=== PATIENT | male | born 1955 | race Caucasian/White ===

== ENCOUNTER → 2017-01-15 | Outpatient (CLI) | payer OTHER ==
[~2017-01-15] MED LIST: ASCA500 PO; B-COTAB18 PO; CRAN1CAP15 PO; FEXO1TAB49 PO; GLUCTAB7 PO; IBUP-103 PO; MULT1CAP17 PO
--- NOTE | 2017-01-15 14:52 | DIAGNOSTIC IMAGING REPORT ---
R FOOT MIN 3 VIEWS ROUTINE CLINICAL HISTORY: M79.676 Toe pain right 2nd toe pain- gout? Inflammatory arthritis COMPARISON: None. DISCUSSION: The bony mineralization appears normal. No acute fractures are visualized. There is no evidence of erosive disease. Incidental note is made of talar beak. There are degenerative changes most pronounced the level the first metatarsal phalangeal joint. IMPRESSION: 1. No acute fractures 2. No evidence of erosive disease 3. Degenerative changes most pronounced the level the first metatarsal phalangeal joint Electronically signed by: Matthew Whitman M.D. 01/15/2017 2:50 PM Dictated Date/Time: 01/15/2017 2:48 PM
== END | disposition home or self-care (01) ==
LOC: C.RADBC 14:10
PROVIDERS: ATTEND Physician Assistant Medical
DX: R97.20 Elevated prostate specific antigen [PSA] (principal); M79.674 Pain in right toe(s)

== ENCOUNTER → 2017-02-26 | Outpatient (CLI) | payer OTHER ==
[2017-02-26 11:28] LABS: PROSTATE SPECIFIC ANTIGEN 6.37 ng/ml (0.000-4.000); URIC ACID 7.5 mg/dl (2.6-7.2)
== END | disposition home or self-care (01) ==
LOC: C.LABBC 07:42
PROVIDERS: ATTEND Physician Assistant Medical
DX: R97.20 Elevated prostate specific antigen [PSA] (principal); M79.676 Pain in unspecified toe(s)

== ENCOUNTER 2020-07-27 06:43 | Observation (INO) ==
--- NOTE | 2020-07-13 09:36 | PAT Medication Instructions ---
Medication Instructions Date of Service July 13, 2020 Home Medications Medication Instructions Recorded fluticasone furoate 100 1 inh INH DAILY PRN #60 ea 11/19/19 mcg-vilanterol 25 mcg/dose inhalation powder gabapentin 100 mg capsule 100 mg PO .COMPLEX #30 cap 03/13/20 colchicine 0.6 mg capsule 0.6 mg PO BID PRN #20 cap 04/27/20 allopurinol 100 mg tablet 100 mg PO BID #180 tab 05/15/20 ascorbic acid (vitamin C) [Vitamin C] 1,000 mg PO BID multivitamin with minerals [Multiple Vitamin-Minerals] 1 tab PO QAM vitamin B complex 1 tab PO QAM albuterol sulfate 90 mcg/actuation aerosol inhaler 1 puff INHALATION QID PRN cranberry 400 mg capsule 400 mg PO QAM ibuprofen 200 mg tablet 200 mg PO TID PRN fluticasone furoate 100 mcg-vilanterol 25 mcg/dose inhalation powder 1 inh INH DAILY PRN gabapentin 100 mg capsule 100 mg PO .COMPLEX colchicine 0.6 mg capsule 0.6 mg PO BID PRN allopurinol 100 mg tablet 100 mg PO BID ASK your prescriber and surgeon ibuprofen 200 mg tablet 200 mg PO TID PRN STOP taking 2 weeks before surgery (or as soon as possible if surgery is within 2 weeks) cranberry 400 mg capsule 400 mg PO QAM DO NOT take the morning of surgery ascorbic acid (vitamin C) [Vitamin C] 1,000 mg PO BID multivitamin with minerals [Multiple Vitamin-Minerals] 1 tab PO QAM vitamin B complex 1 tab PO QAM colchicine 0.6 mg capsule 0.6 mg PO BID PRN Take morning of surgery With a small sip of water, OTHERWISE NOTHING TO EAT OR DRINK AFTER MIDNIGHT: albuterol sulfate 90 mcg/actuation aerosol inhaler 1 puff INHALATION QID PRN (use if needed; please bring rescue inhaler with you to hospital day of surgery if possible) fluticasone furoate 100 mcg-vilanterol 25 mcg/dose inhalation powder 1 inh INH DAILY PRN (if needed) allopurinol 100 mg tablet 100 mg PO BID Take evening before surgery ascorbic acid (vitamin C) [Vitamin C] 1,000 mg PO BID albuterol sulfate 90 mcg/actuation aerosol inhaler 1 puff INHALATION QID PRN (if needed) fluticasone furoate 100 mcg-vilanterol 25 mcg/dose inhalation powder 1 inh INH DAILY PRN (if needed) gabapentin 100 mg capsule 100 mg PO .COMPLEX colchicine 0.6 mg capsule 0.6 mg PO BID PRN (if needed) allopurinol 100 mg tablet 100 mg PO BID Other Notes If you have any questions please call us at [phone] or [phone] or [phone] or [phone]
--- NOTE | 2020-07-17 13:46 | Anesthesiology Consultation ---
Date of Service July 17, 2020 Assessment & Plan (1) Encounter for pre-operative examination: - COVID screening: Per assessment on 07/17: Travel screen negative, no known COVID-19 positive contacts or current COVID-19 related symptoms. Patient fully v accinated. Surgeon arranging preop COVID testing. Awaiting results. - S/P Left Achilles tendon rupture repair (11/16/19): Grade view 3, MAC#3, ETT 7.5 + PNB at [facility] Chart Review Chart Review: Acceptable Risk for Surgery and Patient seen in Pre Admission Testing Teaching & Discussion Pre-Anesthesia Teaching/Discussion Notes: Instructed NPO after midnight before surgery,except medications with 15 cc of water. Medication instructions provided according to the PAT guidelines. History Surgery Operation Date: 07/27/20 09:20 Proposed Procedures p Right Total Knee Arthroplasty - Parmjit Fishman MD Height/Weight Height: 5 ft 8 in Weight: 81.4 kg Allergies Allergy/AdvReac Type Severity Reaction Status Date / Time Penicillins Allergy Intermediate Hives, Verified 07/14/20 16:20 swelling Medications Home Medications Medication Instructions Recorded Confirmed Last Taken ascorbic acid (vitamin C) [Vitamin 1,000 mg PO BID 03/02/18 07/05/20 11/15/19 C] multivitamin with minerals 1 tab PO QAM 03/02/18 07/05/20 11/15/19 [Multiple Vitamin-Minerals] vitamin B complex 1 tab PO QAM 03/02/18 07/05/20 11/15/19 albuterol sulfate 90 mcg/actuation 1 puff INHALATION QID PRN 09/08/18 07/05/20 Unknown aerosol inhaler cranberry 400 mg capsule 400 mg PO QAM 09/08/18 07/05/20 11/15/19 ibuprofen 200 mg tablet 200 mg PO TID PRN tab 03/11/19 07/05/20 11/15/19 08:00 fluticasone furoate 100 1 inh INH DAILY PRN #60 ea 11/19/19 07/05/20 Unknown mcg-vilanterol 25 mcg/dose inhalation powder gabapentin 100 mg capsule 100 mg PO .COMPLEX #30 cap 03/13/20 07/05/20 Unknown colchicine 0.6 mg capsule 0.6 mg PO BID PRN #20 cap 01/21/21 03/31/21 Unknown allopurinol 100 mg tablet 100 mg PO BID #180 tab 05/15/20 07/05/20 Unknown Past Medical History Medical History Elevated PSA Under surveillance Exercise-induced asthma Hx of gout Osteoarthritis Right knee DJD Spinal stenosis Exercise / Class Metabolic Activity II 4-5 Yardwork/Stairs/Walk up hill Past Family History Family History Mother Alzheimer disease Brother Osteoporosis Father Osteoporosis Other No family history of adverse response to anesthesia Denies family history of Ovarian cancer Prostate cancer Breast cancer Lung cancer Colorectal cancer Past Surgical History Surgical History H/O Achilles tendon repair Left achilles tendon rupture repair (11/16/19): Grade view 3, MAC#3, ETT 7.5 at [facility] H/O arthroscopic knee surgery Right H/O nasal septoplasty H/O prostate biopsy x2 H/O total hip arthroplasty Left History of carpal tunnel release Right History of colonoscopy History of lumbar laminectomy History of tonsillectomy and adenoidectomy S/P ORIF (open reduction internal fixation) fracture Right hip Past Anesthesia History No Hx of Anesthesia Complications and No Family Hx of Anesthesia Complications History of PONV No Hx of PONV and No Hx of Motion Sickness Social History Smoking Status: Never smoker Do You Dip or Chew Tobacco: No Hx Alcohol Use: Yes Alcohol type: beer alcohol intake frequency: a few times a month Hx Substance Use: No substance use type: does not use Review of Systems No snoring. Patient denies chest pain, shortness of breath, dyspnea on exertion, fever, chills, cough, wheezing, palpitations. Physical Exam Vital Signs VITALS BP 121/74 P 77 TEMP 98.3 SP02 98%RA RESP 16 PHYSICAL Full cervical extension range of motion. Full TMJ range of motion. TMD 3.5 finger breaths Mallampati Score 2 Dentition: intact, possible crown Lungs: clear throughout to auscultation Cardiac: regular rate and rhythm, no murmurs noted Spine: normal Carotid arteries: negative bruit Extremities: no edema Testing Laboratory Results 07/17/20 14:16 07/17/20 14:16 PT 9.9 Seconds (9.0-12.0) 07/17/20 14:16 INR 1.0 (0.9-1.1) 07/17/20 14:16 APTT 27.3 Seconds (21.0-31.0) 07/17/20 14:16 Blood Type O Positive 07/17/20 14:16 Antibody Screen NEGATIVE 07/17/20 14:16 Electrocardiogram Date: 11/16/19 Findings: + NSR @ (76) Chest X-Ray Date: 07/17/20 FINDINGS: Cardiac mediastinal and hilar silhouettes are within normal limits. There is no pneumothorax, pleural effusion, airspace consolidation or overt pulmonary edema. Degenerative changes of the shoulders and spine. IMPRESSION: No acute process.
--- NOTE | 2020-07-17 14:44 | XRay Report ---
XR chest Pre-admission PA/Lat HISTORY: 64 years-old Male pat degenerative joint disease COMPARISON: Chest radiographs 03/02/2018 TECHNIQUE: PA and lateral views of the chest FINDINGS: Cardiac mediastinal and hilar silhouettes are within normal limits. There is no pneumothorax, pleural effusion, airspace consolidation or overt pulmonary edema. Degenerative changes of the shoulders and spine. IMPRESSION: No acute process. ACT 112: Negative or not required by law. The above report was generated using voice recognition software. It may contain grammatical, syntax o r spelling errors. Electronically signed by: Hremelindo Luke M.D. 07/17/2020 2:43 PM
[2020-07-17 15:24] LABS: Basophils # (auto) 0.04 K/uL (0-0.2); Basophils % (auto) 0.6 %; Eosinophils # (auto) 0.19 K/uL (0-0.5); Eosinophils % (auto) 2.8 %; Hematocrit (blood only) 41.4 % (42-52); Hemoglobin 14.3 g/dL (14.0-18.0); Immature Granulocytes # (auto) 0.01 K/uL (0.00-0.02); Immature Granulocytes % (auto) 0.1 %; Lymphocytes # (auto) 1.87 K/uL (1.2-3.4); Lymphocytes % (auto) 27.6 %; Mean Corpuscular Hemoglobin 31.6 pg (25-34); Mean Corpuscular Hgb Conc 34.5 g/dL (32-36); Mean Corpuscular Volume 91.4 fL (80-100); Mean Platelet Volume 9.7 fL (7.4-10.4); Monocytes # (auto) 0.71 K/uL (0.11-0.59); Monocytes % (auto) 10.5 %; Neutrophils # (auto) 3.95 K/uL (1.4-6.5); Neutrophils % (auto) 58.4 %; Platelet Count 354 K/uL (130-400); RDW Standard Deviation 43.5 fL (36.4-46.3); Red Blood Count 4.53 M/uL (4.7-6.1); White Blood Count 6.77 K/uL (4.8-10.8)
[2020-07-17 15:31] LABS: BUN Creatinine Ratio 17.7 (10-20); Blood Urea Nitrogen 16 mg/dl (7-18); C Reactive Protein < 0.29 mg/dl (0-0.29); Calcium 8.9 mg/dl (8.5-10.1); Carbon Dioxide 29 mmol/L (21-32); Chloride 105 mmol/L (98-107); Est GFR (African American) 104.5; Est GFR (Non-African American) 90.1; Glucose 94 mg/dl (70-99); Potassium 4.2 mmol/L (3.5-5.1); Sodium 138 mmol/L (136-145)
[2020-07-17 15:43] LABS: Partial Thromboplastin Time 27.3 Seconds (21.0-31.0); Prothrombin Time 9.9 Seconds (9.0-12.0)
--- NOTE | 2020-07-21 14:45 | History and Physical Report ---
DATE OF ADMISSION: 07/27/2020 CHIEF COMPLAINT: Persistent right knee pain, discomfort and swelling. HISTORY OF PRESENT ILLNESS: The patient is a 64-year-old gentleman well known to me from previous left hip replacement done about 4 years ago and a right DHS done 10 years ago. He has got a long history of right knee problems. He had his right knee scoped by ____ in the . He has had on and off pain in his knee ever since. He has been through extensive conservative treatments including injections and medicines which have become less successful over time. He has global pain. The more he is up on it, the more it swells and more sore it gets. He is having more difficult time exercising and maintaining an active lifestyle. He would like to have his right knee fixed. PAST MEDICAL HISTORY: 1. Osteoarthritis. 2. Lumbar spondylosis. PAST SURGICAL HISTORY: Include: 1. Left Achilles repair done in 11/2019. 2. Right hip DHS done by myself 10 years ago. 3. Left hip replacement done 4 years ago. ALLERGIES: PENICILLIN, WHICH CAUSES HIVES. CURRENT MEDICINES: Include: 1. Advil. 2. Allopurinol. 3. Vitamin C. 4. Vitamin B. 5. Multivitamin. SOCIAL HISTORY: A 64-year-old male. Very active. Drinks 7 drinks per week. Does not smoke. FAMILY HISTORY: Noncontributory. REVIEW OF SYSTEMS: Negative for diabetes, neurologic problem, vascular problems or bleeding disorders. No history of DVT or PE. No known bleeding problems. PHYSICAL EXAMINATION GENERAL: Healthy, pleasant, middle-aged male. He looks to be in excellent health. HEENT: Benign. NECK: Supple, no lymphadenopathy. LUNGS: Clear to auscultation. HEART: Has a regular rate and rhythm. ABDOMEN: Soft, nontender, nondistended. EXTREMITIES: Grossly neurovascularly intact except as follows. Examination of the right knee reveals the patient ambulates with a bit of a limp. He has got varus alignment to his knee with a varus thrust with weightbearing. He has got a flexion contracture of about 15 degrees and can bend to about 105. Fairly stiff in flexion. No instability. No pain with hip motion. X-RAYS: X-rays of the right knee reviewed. It shows advanced right knee DJD. He has got complete loss of medial and lateral joint spaces with some tibial femoral subluxation. He has got chondrocalcinosis. He has got osteophytes in all 3 compartments. The tibia subluxated anteriorly suggestive of chronic ACL deficiency. ASSESSMENT: A 64-year-old male with a history of multiple orthopedic problems and treatments in the past with advanced right knee degenerative joint disease. He has failed extensive conservative measures and would like to have his right knee replaced. 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 PLAN: We will plan on taking him to the operating room and do a right total knee replacement. The risks and benefits of this procedure were explained to the patient including but not limited to DVT, PE, , infection, neurological injury, vascular injury, bleeding problem, pain, limited range of motion, stiffness, failure to relieve symptoms, incomplete relief of symptoms, need for further surgery in future, fracture, leg length inequality, nerve palsy, and need for revision surgery. The patient understands and desires to proceed. Informed consent was obtained.
[~2020-07-27 06:43] MED LIST changes: +ACETAMINOPHEN 500 MG TAB PO SCH; -ASCA500 PO; -B-COTAB18 PO; +BUPIVACAINE 0.5 % 5 MG/1 ML PF 10ML VIAL ONE; +BUPIVACAINE LIPOSOME/PF 266 MG, BUPIVACAINE/EPINEPHRINE 50 ML, SODIUM CHLORIDE 0.9% 30 ... INFIL SCH; -CRAN1CAP15 PO; +FAMOTIDINE 20 MG TAB PO SCH; -FEXO1TAB49 PO; +GABAPENTIN 300 MG CAP PO SCH; -GLUCTAB7 PO; -IBUP-103 PO; +LR 500ML BOLUS, THEN 15ML/HR IV SCH; +LR 60ML/HR IV SCH; +METOCLOPRAMIDE HCL 10 MG TABLET PO SCH; -MULT1CAP17 PO; +Scopolamine 1 MG TDSY TD SCH; +TRANEXAMIC ACID 1,000 MG **IV Intra-op IV SCH; +VANCOMYCIN HCL 1,250 MG in SODIUM CHLORIDE 0.9% 250 ML IV SCH; +VANCOMYCIN HCL 2,500 MG in SODIUM CHLORIDE 0.9% 500 ML IV SCH; +ceFAZolin 2000MG 2,000 MG/15 ML SYR IV SCH
--- NOTE | 2020-07-27 06:51 | History & Physical Bridge Note ---
Date of Service July 27, 2020 History & Physical Bridge Note I have examined the patient, reviewed the History & Physical and in the interval since the performance of the History & Physical I have noted the following changes of clinical significance: no changes noted
[2020-07-27] MEDS ORDERED: MIDAZOLAM HCL 1 MG/ML 2ML VIAL ONE (07:45)
[2020-07-27] MEDS ORDERED: PROPOFOL IV EMULSION 10 MG/ML 20 ML VIAL IV ONE ×2 (07:45→09:53)
[2020-07-27] MEDS ORDERED: KETOROLAC 30 MG/ML VIAL ONE (07:45)
[2020-07-27] MEDS ORDERED: KETAMINE 50 MG/5 ML SYRINGE ONE (07:45)
[2020-07-27] MEDS ORDERED: LIDOCAINE HCL 2% 2 ML VIAL/AMP(20MG/ML) INFIL ONE (07:45)
[2020-07-27] MEDS ORDERED: GLYCOPYRROLATE 0.2 MG/ML VIAL ONE (07:45)
[2020-07-27] MEDS ORDERED: ONDANSETRON INJ 2 MG/ML 2 ML VIAL ONE (07:45)
[2020-07-27] MEDS ORDERED: BUPIVACAINE LIPOSOME 1.3% 266 MG/20 ML VIAL ONE (07:52)
[2020-07-27] MEDS ORDERED: SODIUM CHLORIDE 0.9% PF 50 ML VIAL ONE (07:52)
[2020-07-27] MEDS ORDERED: ONDANSETRON INJ 2 MG/ML 2 ML VIAL IV PRN ×2 (07:53→12:13)
[2020-07-27] MEDS ORDERED: fentaNYL citrate 100 MCG/2 ML VIAL IV PRN (07:53)
[2020-07-27] MEDS ORDERED: ATROPINE SULFATE 0.1 MG/ML 10ML SYR IV PRN (07:53)
[2020-07-27] MEDS ORDERED: BUPIVACAINE 0.25% 30 ML VIAL ONE (07:53)
[2020-07-27] MEDS ORDERED: EPINEPHrine INJ 1 MG/ML AMP ONE (07:53)
[2020-07-27] MEDS ORDERED: ePHEDrine sulfate 50 MG/ML AMP IV PRN (07:53)
[2020-07-27] MEDS ORDERED: BACITRACIN INJ 50,000 UNIT VIAL ONE (07:53)
--- NOTE | 2020-07-27 10:32 | Post Operative Brief Note ---
PG Immediate Post Op with CF Date of Surgery July 27, 2020 Pre & Post Diagnosis Operation Date: 07/27/20 08:50 Pre-Op Diagnosis: Right Knee Degenerative Joint Disease, Knee Pain Post-Op Diagnosis: Right Knee Degenerative Joint Disease, Knee Pain I identified the patient and participated in the time-out.: Yes Procedure Operation Date: 07/27/20 08:50 Actual Procedures p Right Total Knee Arthroplasty, Cemented(Right) - Parmjit Fishman MD Surgeon Parmjit Fishman MD Upper Doubler DUSTIN Reilly Estimated Blood Loss 50 Findings Consistent with Post-Op Diagnosis Fluids 1300 cc Specimens Specimen Description: Permanent Specimen A: Right knee bone and tissue Drains Traore Catheter Anesthesia Type Spinal MAC Complications none Disposition Accompanied Patient To Recovery: No Disposition: Recovery Room
--- NOTE | 2020-07-27 10:52 | XRay Report ---
XR knee RT 1 or 2V routine CLINICAL HISTORY: Postoperative evaluation. COMPARISON: Right knee radiographs May 03, 2020. FINDINGS: Alignment of the total right knee arthroplasty is anatomic. There is no periprosthetic fra cture. There are skin jeffery. No unexpected radiopaque foreign bodies are present. IMPRESSION: Expected findings following total right knee arthroplasty. ACT 112: Negative or not required by law. Electronically signed by: Moses Hill M.D. 07/27/2020 10:51 AM
--- NOTE | 2020-07-27 11:12 | Anesthesiology Progress Note ---
Date of Service July 27, 2020 Anesthesia Post Procedure Vital Signs Vital Signs: Temp Pulse Pulse Resp BP Pulse Ox 07/27/20 11:00 97.7 F 78 19 119/77 100 07/27/20 10:50 71 15 124/69 100 07/27/20 10:40 69 15 117/70 99 07/27/20 10:30 75 16 111/71 100 07/27/20 10:21 98.1 F 82 16 116/67 100 07/27/20 07:09 97.9 F 69 18 132/80 99 Transfer of Care Handoff Completed per policy Notes Mental Status: alert / awake / arousable and participated in evaluation Patient Amnestic to Procedure: Yes Nausea / Vomiting: adequately controlled Pain: adequately controlled Airway Patency, RR, SpO2: stable & adequate BP & HR: stable & adequate Hydration State: stable & adequate Neuraxial Anesthesia: was administered and sensory block is resolving Anesthetic Complications: no major complications apparent and Pt Satisfied with anesthetic care
[2020-07-27] MEDS ORDERED: TAMSULOSIN HCL 0.4 MG CAP PO PRN (12:13)
[2020-07-27] MEDS ORDERED: bisacodyL 10 MG SUPP PR PRN (12:13)
[2020-07-27] MEDS ORDERED: NALOXONE HCL 0.4 MG/1 ML VIAL/CARP IV PRN (12:13)
[2020-07-27] MEDS ORDERED: HYDROmorphone INJ 0.5 MG/0.5 ML SYR IV PRN (12:13)
[2020-07-27] MEDS ORDERED: ALUMINUM/MAGNESIUM SUSP 30 ML UDC PO PRN (12:13)
[2020-07-27] MEDS ORDERED: COLCHICINE 0.6 MG TAB PO PRN (12:13)
[2020-07-27] MEDS ORDERED: ALBUTEROL HFA 8 GM INHALER INH PRN (12:13)
[2020-07-27] MEDS ORDERED: MAGNESIUM HYDROXIDE SUSP 30 ML UDC PO PRN (12:13)
[2020-07-27] MEDS ORDERED: FLUTICASONE/VILANTEROL 100/25MCG 14 PUFFS/INHALER INH PRN (12:13)
[2020-07-27] MEDS ORDERED: METOCLOPRAMIDE HCL INJ 5 MG/ML 2 ML VIAL IV PRN (12:13)
[2020-07-27] MEDS: oxyCODONE HCL IR 5 MG TAB (IMMEDIATE RELEASE) PO PRN ×2 (13:42→22:53)
[2020-07-27] MEDS: SODIUM CHLORIDE 0.9% 1000ML 1,000 ML IV SCH ×2 (13:43→23:23)
--- NOTE | 2020-07-27 15:11 | Progress Notes ---
DATE: 07/27/2020 SUBJECTIVE: A 64-year-old gentleman postop from a right knee replacement. He is doing well. He says it just feels sore. No chest pain or shortness of breath. Not feeling dizzy or lightheaded. OBJECTIVE: VITAL SIGNS: Temperature 36.4. Vital signs are stable. GENERAL: Shows a pleasant, middle-aged male. He is sitting up in bed and was using his phone when I went in the room, looks completely comfortable. LUNGS: Clear to auscultation. HEART: Has a regular rate and rhythm. ABDOMEN: Soft, nontender, nondistended. EXTREMITIES: Grossly neurovascularly intact except as follows: Examination of the right leg reveals the dressing to be clean, dry and intact. Leg is well aligned. He has got brisk refill with pink toes. He can dorsiflex and plantarflex his foot appropriately. He is neurologically intact. X-RAYS: X-rays of the right knee from recovery room were reviewed. It shows a right cemented posterior stabilized total knee arthroplasty. Components looked to be in good position. No signs of problems. ASSESSMENT: A 64-year-old gentleman postoperative from a right knee replacement, doing well. His pain is controlled. He is neurologically intact. PLAN: 1. DVT prophylaxis including thigh-high TEDs, SCDs, and aspirin twice a day. 2. PT/OT. Weight bear as tolerated. Right total knee protocol. 3. Pain control, doing well with current pain regimen. 4. IV antibiotics x24 hours. 5. Disposition: Plan to discharge to home with some home health once adequately recovered and medically stable.
[2020-07-27] MEDS ORDERED: TRANEXAMIC ACID / 0.7% NACL 1,000 MG/100 ML BAG IV SCH (17:00)
[2020-07-27] MEDS ORDERED: ASCORBIC ACID 500 MG TAB PO SCH (17:00)
--- NOTE | 2020-07-27 17:02 | Operative Report ---
Post Operative Report Pre & Post Diagnosis Operation Date: 07/27/20 08:50 Pre-Op Diagnosis: Right Knee Degenerative Joint Disease, Knee Pain Post-Op Diagnosis: Right Knee Degenerative Joint Disease, Knee Pain I identified the patient and participated in the time-out.: Yes Procedure Operation Date: 07/27/20 08:50 Actual Procedures p Right Total Knee Arthroplasty, Cemented(Right) - Parmjit Fishman MD Surgeon Parmjit Fishman MD Windmill Mechanic DUSTIN Reilly Estimated Blood Loss 50 Findings Consistent with Post-Op Diagnosis Operative findings revealed advanced right knee DJD with extensive grade 4 bone- on-bone disease in all 3 compartments. He had large osteophytes in all 3 compartments. He had chronic ACL deficiency. Moderate-sized joint effusion. He had about a 15 degree flexion contracture. Fluids 1300 cc Specimens Right knee sent for pathology Drains None Anesthesia Type Spinal MAC Complications none Disposition Accompanied Patient To Recovery: No Disposition: Recovery Room Indications Patient is a 64-year-old very active gentleman with a long history of right knee pain discomfort is gradually gotten worse over the past 10 to 15 years. He has been through extensive conservative treatment. Pain is become more debilitating. X-rays show advanced right knee tricompartment DJD. Description of Procedure He elected proceed with surgical treatment. Operative implants consist of: 1. Biomet Vanguard size 72.5 right posterior stabilized femoral component 2. Biomet size 79 tibial tray. 3. 10 mm posterior stabilized polyethylene insert. 4. 34 x 8 and half all polypatella. The patient was taken to the operating, identified, placed on the operating table supine position. All contact areas were properly padded. IV antibiotics tried by anesthesia team. Spinal anesthetic and abductor canal block had been p rovided in the holding area. Traore catheter was placed in sterile fashion. Right factor was then placed. The right lower extremities and prepped and draped in usual sterile fashion. Right leg was elevated exsanguinated with use of an Esmarch and tourniquet placed at 300 mmHg. An anterior approach to the right knee was then performed through longitudinal incision centered over the patella. Sharp dissection got through subcutaneous this down the extensor mechanism. Medial parapatellar arthrotomy incision was made. Some subperiosteal dissection was carried out medially. The fat pad was resected from each patella tendon. The lateral patellofemoral ligament was released. Patella was subluxated laterally. The knee was flexed. The osteophytes were taken off the distal femur. The ACL was absent. PCL was released from the distal femur and the tibia subluxated anteriorly. The external tibial alignment jig was then placed in the interface the tibia and adjusted 16 mm medially. Proximal tibial cut was made essentially flush with the most deficient aspect the posterior medial tibial plateau. Some osteophytes were taken off medial and posterior medially. Tibia sized to a size 79. Attention drawn the femur. The distal femur was entered with a sharp drill. The intramedullary canal was suction. The right 6 degree IM guide was placed. Distal femoral cutting block was pinned in place. Distal femoral cut was made to take an additional 3 mm of bone off distal femur. The femur was then sized to a size 72.5. The AP cutting block was pinned parallel to the epicondylar axis which was 4 degrees of external rotation. The anterior cut, anterior chamfer, posterior cut, posterior chamfer cuts were made. The box cutting guide was placed in just slight lateral box cut was made. The knee was flexed. The remnants of the Menisci were excised. The osteophytes were taken off the posterior aspect the femur. A trial femoral component was placed but the tibial tray was pinned in maximum external rotation and the drill and stem punch were used to create defect in proximal tibia for the tibial tray. Knee was then trialed and the 10 mm insert fit most appropriately. Attention drawn the patella. Patella was cleaned of all soft tissues. Patella thickness measured 25 mm in thickness was cut down to 15. Was sized to a size 34 patella. The lug holes were drilled for the 34 patella. The lateral osteophyte is moved. Patella button was placed. Knee was taken through range of motion patella tracked nicely with no thumbs test. Attention drawn to placing permanent components. Nupathe all trial components were removed. Bone plug was placed in the distal femur limit blood loss put a double batch Pal[place]os G cement was mixed. BiomRe.nooble Vanguard size 72.5 right posterior stabilized femoral component, size 79 tibial tray, 10 mm posterior stabilized polyethylene insert, and a 34 x 8 and half all polypatella then cemented in place. Knee was brought out in full extension total cement hardened. Final cement check was then performed. Pericapsular tissues were injected with total 100 cc of combination of 20 cc of Exparel, 30 cc normal saline, 50 cc of quarter percent Marcaine epinephrine. Patient did receive 1 g tranexamic acid. The tourniquet was then let down for final turn time 67 minutes. Hemostasis assured use electrocautery. Extensor mechanism closed with combination 1 PDS suture #1 Vicryl suture in [id number] fashion. The extensor mechanism was checked and found to be intact the subcutaneous tissue then closed with 2 Dexon suture in a buried interrupted fashion skin was closed skin jeffery. Leg was then cleaned dried and sterile dressed with Xeroform, 4 x 4's, sterile cast padding, Lex bandage were applied. Patient transferred to the recovery room in stable condition. Patient tolerated procedure well and there were no complications. Nolan Reilly, my physician trust administrative assistant, was present for the entire procedure. His assistance was essential and required for appropriate patient positioning, prepping and draping, surgical exposure, performing the technical details of the operation, placement the implants, closure of the wound, and placement of the sterile bandage. I attest to the content of the Intraoperative Record and any orders documented therein. Any exceptions are noted below.
[2020-07-27] MEDS: Scopolamine CHECK PATCH PLACEMENT SCH ×2 (17:10→23:17)
[2020-07-27] MEDS: ceFAZolin 2000MG 2,000 MG/15 ML SYR IV SCH ×2 (17:10→22:55)
[2020-07-27] MEDS: ASCORBIC ACID 500 MG TAB PO SCH (17:11)
[2020-07-27] MEDS: FERROUS GLUCONATE 324 MG TAB PO SCH (17:11)
[2020-07-27] MEDS: KETOROLAC 30 MG/ML VIAL IV SCH ×2 (17:12→22:55)
[2020-07-27] MEDS: ACETAMINOPHEN 500 MG TAB PO SCH ×2 (17:12→22:54)
[2020-07-27] MEDS: ASPIRIN 81 MG ECTAB PO SCH (20:32)
[2020-07-27] MEDS: TAPENTADOL HCL ER 50 MG TABCR PO SCH (20:32)
[2020-07-27] MEDS: DOCUSATE SODIUM 100 MG CAP PO SCH (20:32)
[2020-07-27] MEDS: allopurinoL 100 MG TAB PO SCH (20:32)
[2020-07-27] MEDS ORDERED: GABAPENTIN 100 MG CAP PO PRN (21:00)
[2020-07-27] MEDS ORDERED: SENNA 8.6 MG TAB PO SCH (21:00)
[2020-07-28] MEDS: KETOROLAC 30 MG/ML VIAL IV SCH ×2 (05:28→11:47)
[2020-07-28] MEDS ORDERED: dexAMETHasone 4 MG TAB PO SCH (08:00)
[2020-07-28] MEDS: ACETAMINOPHEN 500 MG TAB PO SCH (08:22)
[2020-07-28] MEDS: allopurinoL 100 MG TAB PO SCH (08:22)
[2020-07-28] MEDS: DOCUSATE SODIUM 100 MG CAP PO SCH (08:23)
[2020-07-28] MEDS: ASPIRIN 81 MG ECTAB PO SCH (08:23)
[2020-07-28] MEDS: ASCORBIC ACID 500 MG TAB PO SCH (08:23)
[2020-07-28] MEDS: FERROUS GLUCONATE 324 MG TAB PO SCH ×2 (08:23→08:28)
[2020-07-28] MEDS: oxyCODONE HCL IR 5 MG TAB (IMMEDIATE RELEASE) PO PRN (08:24)
[2020-07-28] MEDS: Scopolamine CHECK PATCH PLACEMENT SCH (08:28)
[2020-07-28] MEDS ORDERED: MULTIVITAMIN TAB PO SCH (09:00)
[2020-07-28] MEDS ORDERED: VITAMIN B COMPLEX TAB PO SCH (09:00)
[2020-07-28] MEDS ORDERED: [UNRECOGNIZED DRUG - OTHER] PO SCH (09:00)
[2020-07-28] MEDS ORDERED: MULTIVITAMIN WITH MINERALS PO SCH (09:00)
--- NOTE | 2020-07-28 09:19 | Progress Notes ---
DATE: 07/28/2020 SUBJECTIVE: A 64-year-old gentleman postop day 1 from right knee replacement. He is doing pretty well. Legs are bit sore, but very manageable. No chest pain or shortness of breath. Not feeling dizzy or lightheaded. OBJECTIVE: VITAL SIGNS: Temperature 37.1. Vital signs stable. GENERAL: Shows a pleasant, middle-aged male. He is sitting up in bed and looks quite comfortable this morning. EXTREMITIES: Examination of the right leg reveals the leg to be well aligned. Dressing is clean, dry and intact. Toes are pink. He can dorsiflex and plantarflex his foot appropriately. He can do a good straight leg raise. LABORATORY DATA: Pending. ASSESSMENT: A 64-year-old gentleman postop day 1 from right knee replacement, doing well. Pain is controlled. He is neurologically intact. PLAN: 1. DVT prophylaxis including thigh-high TEDs, SCDs, and aspirin twice a day. 2. PT/OT. Weight bear as tolerated. Right total knee protocol. 3. Pain control, doing well with current pain regimen. 4. Disposition: Plan to discharge to home with some home health likely later today.
[2020-07-28 09:38] LABS: Hemoglobin 12.6 g/dL (14.0-18.0); Mean Corpuscular Hemoglobin 31.7 pg (25-34); Mean Corpuscular Volume 90.7 fL (80-100); Mean Platelet Volume 9.7 fL (7.4-10.4); Platelet Count 320 K/uL (130-400); RDW Standard Deviation 43.2 fL (36.4-46.3); Red Blood Count 3.97 M/uL (4.7-6.1); White Blood Count 10.04 K/uL (4.8-10.8)
[2020-07-28 10:05] LABS: BUN Creatinine Ratio 11.1 (10-20); Calcium 8.1 mg/dl (8.5-10.1); Creatinine Clr Calc Pharmacy 67.9 ml/min; Est GFR (African American) 85.9; Est GFR (Non-African American) 74.1; Potassium 3.6 mmol/L (3.5-5.1)
[2020-07-28] MEDS: TAPENTADOL HCL ER 50 MG TABCR PO SCH (10:35)
== END 2020-07-28 13:27 | disposition home health service (06) ==
LOC: ASU 06:43 → 3E 06:43